=== PATIENT | female | born 1975 | race Caucasian/White ===

== ENCOUNTER → 2020-09-25 | Outpatient (CLI) | payer MEDICARE | LOC: US 09:53 | DX: R74.8 Abnormal levels of other serum enzymes (principal); Z90.49 Acquired absence of other specified parts of digestive tract | CPT/HCPCS: 76705 ==

== ENCOUNTER → 2021-01-02 | Outpatient (CLI) | payer BC, OTHER | LOC: RAD 13:33 | DX: R50.9 Fever, unspecified (principal) | CPT/HCPCS: 71046 ==

== ENCOUNTER → 2021-03-13 | Outpatient (CLI) | payer BC, OTHER | LOC: RAD 12:07 | DX: M54.5 Low back pain (principal); M51.37 Other intervertebral disc degeneration, lumbosacral region | CPT/HCPCS: 72100 ==

== ENCOUNTER → 2021-07-08 | Outpatient (CLI) | payer BC | LOC: RAD 14:31 | DX: M25.561 Pain in right knee (principal); M25.562 Pain in left knee | CPT/HCPCS: 73562 ==

== ENCOUNTER → 2021-07-14 | Outpatient (CLI) | payer BC | LOC: RAD 16:37 | DX: M25.512 Pain in left shoulder (principal); M54.2 Cervicalgia | CPT/HCPCS: 72040; 73030 ==

== ENCOUNTER → 2021-08-17 | Outpatient (CLI) | payer BC, OTHER ==
[2021-08-17 16:07] LABS: BORDETELLA PARAPERTUSSIS Not Detected (Not Detectd); BORDETELLA PERTUSSIS Not Detected (Not Detectd); CHLAMYDIA PNEUMONIAE Not Detected (Not Detectd); CORONAVIRUS HKU1 Not Detected (Not Detectd); CORONAVIRUS NL63 Not Detected (Not Detectd); CORONAVIRUS OC43 Not Detected (Not Detectd); CORONOAVIRUS 229E Not Detected (Not Detectd); HUMAN METAPNEUMOVIRUS Not Detected (Not Detectd); HUMAN RHINOVIRUS/ENTEROVIRUS Not Detected (Not Detectd); INFLUENZA A Not Detected (Not Detectd); INFLUENZA B Not Detected (Not Detectd); MYCOPLASMA PNEUMONIAE Not Detected (Not Detectd); PARAINFLUENZA VIRUS 1 Not Detected (Not Detectd); PARAINFLUENZA VIRUS 2 Not Detected (Not Detectd); PARAINFLUENZA VIRUS 3 Not Detected (Not Detectd); PARAINFLUENZA VIRUS 4 Not Detected (Not Detectd); RESPIRATORY SYNCYTIAL VIRUS Not Detected (Not Detectd)
[2021-08-17 17:20] LABS: SARS-CoV-2 NOT DETECTED (Not Detectd)
== END ==
LOC: RAD 15:34
PROVIDERS: Physician Assistant
DX: J40 Bronchitis, not specified as acute or chronic (principal); Z20.822 Contact with and (suspected) exposure to COVID-19
CPT/HCPCS: 71046; 87633

== ENCOUNTER 2021-09-03 00:14 | Emergency (ER) | payer BC, OTHER ==
[2021-09-03 01:27] LABS: RED BLOOD COUNT 4.83 M/UL (4.00-5.10); WHITE BLOOD COUNT 8.7 K/UL (4.5-11.0)
[2021-09-03 01:44] LABS: BUN/CREATININE RATIO 11 (0-10)
[2021-09-03] MEDS ORDERED: ZITHROMAX250 MG PO (03:01)
[2021-09-03] MEDS ORDERED: ONDANSETRON ODT4 MG SL (03:04)
== END 2021-09-03 03:12 | disposition home or self-care (01) ==
LOC: ER1 00:14
PROVIDERS: Physician Assistant
DX: J20.9 Acute bronchitis, unspecified (principal); R53.1 Weakness; R42 Dizziness and giddiness; Z20.822 Contact with and (suspected) exposure to COVID-19; Z91.012 Allergy to eggs; Z91.040 Latex allergy status
CPT/HCPCS: 0240U; 71045; 80053; 81001; 83690; 84703; 85025; 87081; 87086; 87880; 93005; 96374; 99284; J2405

== ENCOUNTER → 2021-09-16 | Outpatient (CLI) | payer BC ==
[~2021-09-16] MED LIST: ONDANSETRON ODT4 MG SL; ZITHROMAX250 MG PO
== END ==
LOC: KOH-I 15:10
DX: R93.89 Abnormal findings on diagnostic imaging of other specified body structures (principal)
CPT/HCPCS: 71250

== ENCOUNTER → 2021-10-06 | Outpatient (CLI) | payer BC | LOC: RAD 15:28 | DX: R93.89 Abnormal findings on diagnostic imaging of other specified body structures (principal) | CPT/HCPCS: 71046 ==

== ENCOUNTER 2022-02-25 18:56 | Emergency (ER) | payer OTHER, BC ==
[2022-02-25 19:42] LABS: HEMOGLOBIN 14.3 gm/dl (12.3-15.3); RED BLOOD COUNT 5.26 M/UL (4.00-5.10); WHITE BLOOD COUNT 7.9 K/UL (4.5-11.0)
== END 2022-02-25 21:08 | disposition left against medical advice (07) ==
LOC: ER1 18:56
PROVIDERS: Physician Assistant
DX: R53.83 Other fatigue (principal); R82.998 Other abnormal findings in urine; R40.2410 Glasgow coma scale score 13-15, unspecified time; Z90.49 Acquired absence of other specified parts of digestive tract
CPT/HCPCS: 80053; 81001; 82150; 83690; 85025; 87086; 99283